=== PATIENT | female | born 1975 | race Caucasian/White ===

== ENCOUNTER 2017-03-29 02:51 | Inpatient (IN) | payer SELFPAY ==
[~2017-03-29] VITALS: Ht 152.4 cm; Wt 48.3 kg
[~2017-03-29 02:51] MED LIST: ALBU8.5H3 INH; ALPR1TAB2 PO; CEFD300C37 PO; DULO30CA2 PO; FLUC200T PO; FLUT1AER INH; METH4TAB2 PO; METR500T PO; OMEP40CA6 PO; OXYM40TA13 PO; PRAZ2CAP2 PO; PRAZ5CAP2 PO; PROP40TA PO; TRAM50TA2 PO; TRAZ100T15 PO; ZIPR20CA2 PO; ZIPR60CA2 PO
[2017-03-29] MEDS ORDERED: SODIUM CHLORIDE FLUSH 10ML SYR IVF ONE (04:00)
[2017-03-29] MEDS ORDERED: ONDANSETRON 2MG/ML, 2ML IVPush ONE (04:00)
[2017-03-29] MEDS ORDERED: SODIUM CHLORIDE 0.9% 1,000ML IVBOLUS ONE (04:00)
[2017-03-29] MEDS ORDERED: HYDROmorphone 1 MG/ML, 1ML ONE ×2 (04:10→06:22)
[2017-03-29] MEDS ORDERED: ONDANSETRON 2MG/ML, 2ML ONE (04:10)
[2017-03-29 04:16] LABS: BLOOD UREA NITROGEN 12 mg/dL (7-18)
[2017-03-29] MEDS: HYDROmorphone 1 MG/ML, 1ML IVPush PRN ×2 (04:16→06:26)
[2017-03-29] MEDS ORDERED: OMNIPAQUE 350 MG/ML, 100ML BOTTLE ONE (04:45)
[2017-03-29] MEDS ORDERED: PIPERACILLIN/TAZO/PMX 3.375GM 50 ML IV ONE (06:00)
[2017-03-29] MEDS ORDERED: OXCA150T3 PO (06:18)
[2017-03-29] MEDS ORDERED: BACL-19 PO (06:18)
[2017-03-29] MEDS ORDERED: DICL1ADH5 TD (06:18)
[2017-03-29] MEDS ORDERED: ONDA4TAB7 PO (06:18)
[2017-03-29] MEDS ORDERED: LUBI24CA5 PO (06:18)
[2017-03-29] MEDS ORDERED: LIDO700A5 TD (06:18)
[2017-03-29] MEDS ORDERED: PIPERACILLIN/TAZO/PMX 3.375GM 50 ML ONE (06:22)
[2017-03-29] MEDS ORDERED: POLYETHYLENE GLYCOL 17 GM PACKET PO PRN (07:30)
[2017-03-29] MEDS ORDERED: DOCUSATE 100 MG CAPSULE PO PRN (07:30)
[2017-03-29] MEDS ORDERED: BISACODYL 10 MG SUPP PR PRN (07:30)
[2017-03-29] MEDS ORDERED: LABETALOL 5MG/ML 40ML VIAL IVPush PRN (07:30)
[2017-03-29] MEDS ORDERED: FENTANYL PF 100 MCG/2ML IVPush PRN (07:30)
[2017-03-29] MEDS: PIPERACILLIN/TAZO/PMX 3.375GM 50 ML IV SCH ×3 (07:30→19:33)
[2017-03-29] MEDS ORDERED: PRAZOSIN 2 MG CAPSULE PO PRN (07:30)
[2017-03-29] MEDS ORDERED: ACETAMINOPHEN 325 MG TABLET PO PRN (07:30)
[2017-03-29] MEDS ORDERED: ALBUTEROL SULFATE 2.5 MG/3 ML HHN PRN (07:30)
[2017-03-29] MEDS ORDERED: ALPRazolam 1MG TABLET PO PRN (07:30)
[2017-03-29] MEDS ORDERED: GADOBUTROL 7.5 MMOL/7.5 ML PFS ONE (08:50)
[2017-03-29] MEDS ORDERED: OMNIPAQUE 350 MG/ML, 75ML BOTTLE ONE (08:54)
[2017-03-29 09:00] VITALS: BP 152/71
[2017-03-29] MEDS: ONDANSETRON 2MG/ML, 2ML IVPush PRN ×3 (09:02→22:07)
[2017-03-29] MEDS: LIDODERM 5% PATCH TD SCH (10:23)
[2017-03-29] MEDS: NS + 20MEQ KCL 1,000 ML IV SCH ×2 (10:23→19:33)
[2017-03-29] MEDS: BACLOFEN 10 MG TABLET PO SCH ×2 (10:24→19:18)
[2017-03-29] MEDS: LUBIPROSTONE 24 MCG CAPSULE PO SCH ×2 (10:24→19:17)
[2017-03-29] MEDS: OXCARBAZEPINE 150 MG TABLET PO SCH (10:24)
[2017-03-29] MEDS: DULOXETINE 30 MG CAPSULE.DR PO SCH ×2 (10:24→19:18)
[2017-03-29] MEDS: DICLOFENAC EPOLAMINE TD SCH ×2 (10:25→19:18)
[2017-03-29] MEDS: FLUTICASONE/VILANTEROL 100-25MCG/INH INH SCH (10:25)
[2017-03-29] MEDS: FENTANYL PF 100 MCG/2ML IVPush PRN ×6 (12:36→23:03)
[2017-03-29 14:23] VITALS: BP 130/80
[2017-03-29] MEDS ORDERED: OMNIPAQUE 350 MG/ML, 150 ML BOTTLE ONE (17:03)
[2017-03-29] MEDS: LORazepam 2 MG/ML, 1ML IVPush PRN ×2 (17:44→22:05)
[2017-03-29] MEDS: TRAZODONE 100MG TABLET PO SCH (19:18)
[2017-03-29] MEDS: PRAZOSIN 5 MG CAPSULE PO SCH (19:18)
[2017-03-29 19:30] VITALS: BP 123/85
[2017-03-29] MEDS ORDERED: LORazepam 2 MG/ML, 1ML IV ONE (23:30)
[2017-03-30] MEDS: LUBIPROSTONE 24 MCG CAPSULE PO SCH ×2 (01:02→19:30)
[2017-03-30] MEDS: PIPERACILLIN/TAZO/PMX 3.375GM 50 ML IV SCH ×4 (01:15→20:39)
[2017-03-30] MEDS: NS + 20MEQ KCL 1,000 ML IV SCH ×3 (01:15→23:18)
[2017-03-30] MEDS: FENTANYL PF 100 MCG/2ML IVPush PRN ×8 (01:15→18:27)
[2017-03-30 01:32] VITALS: BP 123/80
[2017-03-30] MEDS: LORazepam 2 MG/ML, 1ML IVPush PRN ×4 (05:01→20:34)
[2017-03-30 05:35] LABS: BLOOD UREA NITROGEN 11 mg/dL (7-18)
[2017-03-30 05:40] LABS: ASPARTATE AMINO TRANSFERASE 10 U/L (15-37)
[2017-03-30 07:28] VITALS: BP 121/79
[2017-03-30] MEDS: FLUTICASONE/VILANTEROL 100-25MCG/INH INH SCH (08:22)
[2017-03-30] MEDS: DULOXETINE 30 MG CAPSULE.DR PO SCH ×2 (09:00→21:00)
[2017-03-30] MEDS: OXCARBAZEPINE 150 MG TABLET PO SCH (09:00)
[2017-03-30] MEDS: LIDODERM 5% PATCH TD SCH (09:00)
[2017-03-30] MEDS: DICLOFENAC EPOLAMINE TD SCH ×2 (09:00→21:00)
[2017-03-30] MEDS: BACLOFEN 10 MG TABLET PO SCH ×2 (09:00→21:00)
[2017-03-30 13:12] VITALS: BP 113/69
[2017-03-30] MEDS ORDERED: DIAZEPAM 5 MG/ML, 2ML IV PRN (21:00)
[2017-03-30] MEDS: PRAZOSIN 5 MG CAPSULE PO SCH (21:00)
[2017-03-30] MEDS: TRAZODONE 100MG TABLET PO SCH (21:00)
[2017-03-30] MEDS: morphine SULFATE 10 MG/ML, 1ML IVPush PRN ×2 (21:11→22:36)
[2017-03-30 21:45] VITALS: BP 167/91
[2017-03-30] MEDS: DIAZEPAM 5 MG/ML, 10ML VIAL IV PRN (23:21)
[2017-03-30 23:34] VITALS: BP 122/78
[2017-03-31] MEDS: MORPHINE SULFATE 4 MG/ML, 1ML IVPush PRN ×5 (02:51→20:40)
[2017-03-31] MEDS: PIPERACILLIN/TAZO/PMX 3.375GM 50 ML IV SCH ×4 (02:51→19:33)
[2017-03-31] MEDS: NS + 20MEQ KCL 1,000 ML IV SCH ×2 (03:30→12:24)
[2017-03-31] MEDS: LORazepam 2 MG/ML, 1ML IVPush PRN ×4 (03:53→18:44)
[2017-03-31 04:08] VITALS: BP 123/74
[2017-03-31 06:23] LABS: ASPARTATE AMINO TRANSFERASE 12 U/L (15-37); BLOOD UREA NITROGEN 8 mg/dL (7-18)
[2017-03-31] MEDS ORDERED: MIDAZOLAM 1 MG/ML, 2ML ONE (07:12)
[2017-03-31] MEDS ORDERED: FENTANYL PF 100 MCG/2ML ONE (07:12)
[2017-03-31] MEDS: LUBIPROSTONE 24 MCG CAPSULE PO SCH ×3 (07:30→19:30)
[2017-03-31 08:00] VITALS: BP 107/55
[2017-03-31] MEDS: DIAZEPAM 5 MG/ML, 10ML VIAL IV PRN ×2 (08:32→11:25)
[2017-03-31] MEDS: OXCARBAZEPINE 150 MG TABLET PO SCH (08:33)
[2017-03-31] MEDS: DULOXETINE 30 MG CAPSULE.DR PO SCH ×3 (08:33→20:32)
[2017-03-31] MEDS: FLUTICASONE/VILANTEROL 100-25MCG/INH INH SCH (08:33)
[2017-03-31] MEDS: BACLOFEN 10 MG TABLET PO SCH ×3 (08:34→20:33)
[2017-03-31] MEDS: DICLOFENAC EPOLAMINE TD SCH ×2 (08:34→21:00)
[2017-03-31] MEDS: LIDODERM 5% PATCH TD SCH (08:34)
[2017-03-31] MEDS ORDERED: FENTANYL 50 MCG PATCH TD SCH (11:30)
[2017-03-31] MEDS ORDERED: DEXAMETHASONE 4 MG/ML, 1ML ONE (13:11)
[2017-03-31] MEDS ORDERED: ONDANSETRON 2MG/ML, 2ML ONE (13:11)
[2017-03-31] MEDS ORDERED: PROPOFOL 10 MG/ML, 20ML ONE (13:11)
[2017-03-31] MEDS ORDERED: LABETALOL 5MG/ML, 20ML IV PRN (14:00)
[2017-03-31] MEDS ORDERED: ONDANSETRON 2MG/ML, 2ML IVPush PRN (14:00)
[2017-03-31] MEDS ORDERED: FENTANYL PF 100 MCG/2ML IV PRN (14:00)
[2017-03-31] MEDS ORDERED: MIDAZOLAM 1 MG/ML, 2ML IV PRN (14:00)
[2017-03-31] MEDS ORDERED: ALBUTEROL SULFATE 2.5 MG/3 ML NPPB PRN (14:00)
[2017-03-31] MEDS ORDERED: hydrALAzine 20 MG/ML, 1ML IV PRN (14:00)
[2017-03-31] MEDS ORDERED: hydrALAzine 20 MG/ML, 1ML ONE (14:14)
[2017-03-31 14:46] VITALS: BP 126/61
[2017-03-31] MEDS: SUCRALFATE 1 GM/10 ML UDC PO SCH ×2 (15:49→20:27)
[2017-03-31 20:02] VITALS: BP 130/79
[2017-03-31] MEDS: TRAZODONE 100MG TABLET PO SCH (20:32)
[2017-03-31] MEDS: PRAZOSIN 5 MG CAPSULE PO SCH (20:37)
[2017-04-01] MEDS: NS + 20MEQ KCL 1,000 ML IV SCH ×2 (00:35→12:00)
[2017-04-01] MEDS: MORPHINE SULFATE 4 MG/ML, 1ML IVPush PRN ×3 (01:33→10:17)
[2017-04-01] MEDS: PIPERACILLIN/TAZO/PMX 3.375GM 50 ML IV SCH ×3 (01:33→14:07)
[2017-04-01 01:40] VITALS: BP 115/59
[2017-04-01] MEDS: SUCRALFATE 1 GM/10 ML UDC PO SCH ×3 (06:54→16:52)
[2017-04-01 06:57] VITALS: BP 99/56
[2017-04-01] MEDS: LUBIPROSTONE 24 MCG CAPSULE PO SCH (07:30)
[2017-04-01] MEDS ORDERED: OMEPRAZOLE 20 MG CAPSULE.DR PO SCH (07:30)
[2017-04-01] MEDS: DICLOFENAC EPOLAMINE TD SCH (09:00)
[2017-04-01] MEDS: OXCARBAZEPINE 150 MG TABLET PO SCH (09:00)
[2017-04-01] MEDS: DULOXETINE 30 MG CAPSULE.DR PO SCH (09:37)
[2017-04-01] MEDS: BACLOFEN 10 MG TABLET PO SCH (09:37)
[2017-04-01] MEDS: LIDODERM 5% PATCH TD SCH (09:39)
[2017-04-01] MEDS: FLUTICASONE/VILANTEROL 100-25MCG/INH INH SCH (09:40)
[2017-04-01] MEDS: ONDANSETRON 2MG/ML, 2ML IVPush PRN (09:41)
[2017-04-01 13:00] VITALS: BP 106/63
[2017-04-01] MEDS ORDERED: OMEP-110 PO (13:34)
[2017-04-01] MEDS ORDERED: SUCR1TAB26 PO (13:34)
[2017-04-01 17:01] VITALS: BP 94/64
== END 2017-04-01 17:00 | disposition home or self-care (01) | DRG 393 ==
LOC: ED 07:09 → 4NOR 07:12
PROVIDERS: ADMIT Internal Medicine; ATTEND Family Medicine
PROC: 02HV33Z Insertion of Infusion Device into Superior Vena Cava, Percutaneous Approach (ICD-10-PCS; 2017-03-31)
PROC: B5181ZA Fluoroscopy of Superior Vena Cava using Low Osmolar Contrast, Guidance (ICD-10-PCS; 2017-03-31)
PROC: B548ZZA Ultrasonography of Superior Vena Cava, Guidance (ICD-10-PCS; 2017-03-31)
PROC: 0DB68ZX Excision of Stomach, Via Natural or Artificial Opening Endoscopic, Diagnostic (ICD-10-PCS; principal; 2017-03-31 07:30)
DX: K95.89 Other complications of other bariatric procedure (principal); N17.0 Acute kidney failure with tubular necrosis; K25.5 Chronic or unspecified gastric ulcer with perforation; E46 Unspecified protein-calorie malnutrition; N20.0 Calculus of kidney; R73.9 Hyperglycemia, unspecified; M25.512 Pain in left shoulder; J45.909 Unspecified asthma, uncomplicated; K20.9 Esophagitis, unspecified; G89.4 Chronic pain syndrome; F12.90 Cannabis use, unspecified, uncomplicated; Z98.51 Tubal ligation status; Z88.5 Allergy status to narcotic agent; Z90.49 Acquired absence of other specified parts of digestive tract; Z98.84 Bariatric surgery status; Z79.899 Other long term (current) drug therapy; Z85.42 Personal history of malignant neoplasm of other parts of uterus; Z90.710 Acquired absence of both cervix and uterus; Z88.8 Allergy status to other drugs, medicaments and biological substances; Z68.23 Body mass index [BMI] 23.0-23.9, adult
CPT/HCPCS: 36415; 36569; 74177; 74241; 76937; 77001; 80048; 80053; 82040; 83036; 84703; 85025; 85610; 88305; 93005; 96374; 96375; A9585; J1100; J1170; J2250; J2405; J2543; J2704; J3010; J3360; J3480; Q9967; C1751; J0360; J2060; J2270; J7030

== ENCOUNTER → 2017-05-18 | Outpatient (CLI) | payer OTHER ==
[~2017-05-18] MED LIST changes: -ALBU8.5H3 INH; +ALBU8.5H8 INH; +BACL-19 PO; +DICL1ADH15 TD; +LIDO700A5 TD; +LUBI24CA7 PO; +OMEP-110 PO; +OMNIPAQUE 350 MG/ML, 150 ML BOTTLE ONE; +ONDA4TAB7 PO; +OXCA150T3 PO; +SUCR1TAB33 PO
== END | disposition home or self-care (01) ==
LOC: RAD 08:31
PROVIDERS: ATTEND Internal Medicine Gastroenterology
DX: K25.5 Chronic or unspecified gastric ulcer with perforation (principal); R11.10 Vomiting, unspecified
CPT/HCPCS: 74241; Q9967

== ENCOUNTER → 2017-08-31 | Outpatient (CLI) | payer OTHER ==
[~2017-08-31] MED LIST changes: +OMNIPAQUE 350 MG/ML, 100ML BOTTLE ONE; -OMNIPAQUE 350 MG/ML, 150 ML BOTTLE ONE
== END | disposition home or self-care (01) ==
LOC: CFH 14:46 → MERGE 15:30
PROVIDERS: ATTEND Thoracic Surgery (Cardiothoracic Vascular Surgery)
DX: K59.00 Constipation, unspecified (principal); Q61.5 Medullary cystic kidney; E83.59 Other disorders of calcium metabolism; N29 Other disorders of kidney and ureter in diseases classified elsewhere; Z93.1 Gastrostomy status
CPT/HCPCS: 74177; 82565; Q9967